=== PATIENT | male | born 1970 | race Caucasian/White ===

== ENCOUNTER 2017-05-09 02:50 | Emergency (ER) | payer OTHER ==
[~2017-05-09] VITALS: Ht 172.7 cm; Wt 72.6 kg
[2017-05-09] MEDS ORDERED: CLARITIN10 MG PO (02:58)
[2017-05-09 03:41] LABS: ABSOLUTE EOSINOPHILS 0.2 thou/uL (0.0-0.7); ABSOLUTE LYMPHOCYTES 3.4 thou/uL (0.8-5.3); ABSOLUTE MONOCYTES 0.9 thou/uL (0.0-1.2); ABSOLUTE NEUTROPHILS 6.7 thou/uL (1.6-8.1); BASOPHILS 0.3 %; EOSINOPHILS 1.5 %; HEMATOCRIT 45.5 % (42.0-52.0); HEMOGLOBIN 14.9 gm/dL (14.0-18.0); LYMPHOCYTES 30.3 %; MCH 26.6 pg (26.0-34.0); MCHC 32.7 g/dL (28.0-37.0); MCV 81.2 fL (80.0-100.0); MONOCYTES 7.9 %; MPV 7.5 fl. (7.2-11.1); NUCLEATED RBCS 0 /100WBC; PLATELET COUNT* 239 thou/uL (150-400); RDW-CV 14.3 % (10.5-14.5); WBC 11.2 thou/uL (4.0-11.0)
[2017-05-09 03:47] LABS: POTASSIUM 4.1 mmol/L (3.5-5.1)
[2017-05-09 03:51] LABS: ALBUMIN 3.8 g/dL (3.4-5.0); TOTAL BILIRUBIN 0.3 mg/dL (<0.1-1.0); TOTAL PROTEIN 7.8 g/dL (6.4-8.2)
[2017-05-09] MEDS ORDERED: FLEXERIL PO (05:09)
[2017-05-09] MEDS ORDERED: NORCO 5-325 TA1 EACH PO (05:09)
[2017-05-09 05:23] VITALS: BP 147/82
== END 2017-05-09 05:23 | disposition home or self-care (01) ==
LOC: M.ERS 02:50
PROVIDERS: Family Medicine
DX: M54.5 Low back pain (principal)